=== PATIENT | female | born 1960 | race Caucasian/White ===

== ENCOUNTER 2022-09-26 16:12 | Emergency (ER) | payer MEDICAID ==
[~2022-09-26] VITALS: Ht 152.4 cm; Wt 54.0 kg
[~2022-09-26 16:12] MED LIST: MECL-159 PO
[2022-09-26 16:42] VITALS: BP 144/89
[2022-09-26] MEDS ORDERED: dexamethasone 4mg tablet PO ONE (18:35)
[2022-09-26] MEDS ORDERED: DEC4T PO (18:50)
[2022-09-26] MEDS ORDERED: MELO-102 PO (18:50)
== END 2022-09-26 18:59 | disposition home or self-care (01) ==
LOC: ER 16:13
DX: G56.01 Carpal tunnel syndrome, right upper limb (principal)
CPT/HCPCS: 29125; 99283